=== PATIENT | male | born 1990 | race Caucasian/White ===

== ENCOUNTER 2023-02-15 23:58 | Emergency (ER) | payer OTHER ==
[~2023-02-15] VITALS: Ht 175.3 cm; Wt 70.3 kg
[2023-02-16 00:12] VITALS: BP 114/71
--- NOTE | 2023-02-16 00:15 | NUR ---
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
--- NOTE | 2023-02-16 00:29 | NUR ---
patient is A, Ox4, ambulatory with steady gaits. no N/N. clear for d/c per MD. Patient discharged to home in stable condition. Written and verbal after care instructions given. Patient verbalizes understanding of instruction.
== END 2023-02-16 00:53 | disposition home or self-care (01) ==
LOC: ER 02-16
DX: F10.129 Alcohol abuse with intoxication, unspecified (principal); Y90.9 Presence of alcohol in blood, level not specified